=== PATIENT | male | born 1990 | race African-American/Black ===

== ENCOUNTER 2018-09-22 15:26 | Emergency (ER) | payer OTHER ==
[2018-09-22 15:34] VITALS: BP 130/85
[2018-09-22] MEDS ORDERED: ACETAMINOPHEN 325 MG TABLET PO STA (15:34)
[2018-09-22] MEDS ORDERED: IBUPROFEN 600 MG TABLET PO STA (15:34)
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
== END 2018-09-22 16:23 | disposition home or self-care (01) ==
LOC: ED 15:26
DX: S16.1XXA Strain of muscle, fascia and tendon at neck level, initial encounter (principal); V89.2XXA Person injured in unspecified motor-vehicle accident, traffic, initial encounter
CPT/HCPCS: 72040; 99283; 99284; A9270